=== PATIENT | female | born 1950 | race Caucasian/White ===

== ENCOUNTER 2020-02-26 13:03 | Emergency (ER) | payer MEDICARE, SELFPAY ==
--- NOTE | ~2020-02-26 | CT_ITS ---
EXAMINATION: CTA BRAIN/CAROTID DATE: 02/26/2020 14:23 INDICATION: Left-sided numbness and tingling TECHNIQUE: Computed tomographic angiography (CTA) of the head and neck was performed with 100 mL Omni paque-350 intravenous contrast. Multiplanar reconstructions and maximum intensity projection 3D-recon structions of the carotid arteries and of the intracranial arteries were created by the technologist on a separate workstation. Precontrast CT of the head was also obtained. Automated exposure control and iterative reconstruction technique were employed.The dose-length product was 2706.79 mGy-cm. COMPARISON: None. FINDINGS: Carotid arteries: There is 20% stenosis of the right carotid bulb relative to normal distal artery lumen diameter (NASC ET criteria). There is 25% stenosis of the left carotid bulb relative to normal distal artery lumen d iameter. There is additional 40% stenosis in the more proximal right common carotid artery and 35% st enosis in the more proximal left common carotid artery. Cervical soft tissues are unremarkable. Mild to moderate emphysema. Visualized superior mediastinum is unremarkable. Head: No acute intracranial hemorrhage, acute infarction or abnormal extra axial fluid collection. There is moderate scattered white matter hypoattenuation consistent with chronic small vessel ischemic diseas e. Ventricles are normal and symmetric. No mass/mass effect. The orbits, paranasal sinuses and masto id air cells are normal. No abnormally enhancing brain lesions. Intracranial arteries Atherosclerotic calcifications at the bilateral carotid siphons without hemodynamically significant s tenosis. Left vertebral artery is dominant. There is no hemodynamically significant stenosis in the vertebral, basilar arteries. There are no aneurysms identified. Bilateral A1 segments are patent. The re is a diminutive right P1 segment with the majority of flow to the right posterior cerebral artery appearing to be supplied via the right internal carotid artery and a large right posterior communicat ing artery. The left posterior indicating artery appears to be the exclusive supply to the left poste rior cerebral artery. Cerebral arterial arborization appears symmetric. IMPRESSION: 1. 20% stenosis of the right carotid bulb relative to normal distal artery lumen diameter (NASCET cri teria). 2. 25% stenosis of the left carotid bulb relative to normal distal artery lumen diameter. 3. Moderate scattered white matter hypoattenuation consistent with chronic small vessel ischemic dise ase. No acute intracranial process. 4. No aneurysm or hemodynamically significant stenosis in the intracranial arteries. Reviewed, dictated and finalized at location A. ETIC LOCATER IMPRESSION: 1. 20% stenosis of the right carotid bulb relative to normal distal artery lume n diameter (NASCET criteria). 2. 25% stenosis of the left carotid bulb relative to normal distal artery lumen diameter. 3. Moderate scattered white matter hypoattenuation consistent with chronic smal l vessel ischemic disease. No acute intracranial process. 4. No aneurysm or hemodynamically significant stenosis in the intracranial bonilla jose.
[2020-02-26 13:05] VITALS: BP 156/88; PULSE 96; RESP 18; TEMP 37.1; O2SAT 99
[2020-02-26 13:14] VITALS: PULSE 87; RESP 23; O2SAT 97
[2020-02-26 13:15] VITALS: PULSE 88; RESP 17; O2SAT 98
[2020-02-26 13:30] VITALS: PULSE 82; RESP 19; O2SAT 94
--- NOTE | 2020-02-26 13:30 | ED.NEUROSD ---
HPI - Neuro Symptoms/Deficit General Chief Complaint: Neuro Symptoms/Deficit Stated Complaint: tingling in left arm going down left side of body Time Seen by Provider: 02/26/20 13:17 Source: patient Mode of arrival: ambulatory Limitations: no limitations History of Present Illness HPI Narrative: Patient 70-year-old female complaining of tingling of her left arm and left lower extremity that started around 930 this morning that lasted for a few minutes. Patient states that it happened again after an hour again only for a few minutes and now resolved. Patient currently asymptomatic and has no complaints. Patient denies any speech or visual disturbance, weakness, numbness or unsteady gait. Patient [place] any chest pain, shortness of breath, abdominal pain, nausea vomiting, fever or chills Related Data Home Medications Medication Instructions Recorded Confirmed aspirin 81 mg chewable tablet 81 mg PO DAILY 09/14/19 01/20/20 Allergies Allergy/AdvReac Type Severity Reaction Status Date / Time No Known Allergies Allergy Verified 01/20/20 09:03 Review of Systems Review of Systems: All systems reviewed & are unremarkable except as noted in HPI and below Constitutional: Constitutional: Denies body ache(s), Denies chills, Denies excessive sweating, Denies fatigue, Denies fever(s), Denies headache(s), Denies lethargy, Denies malaise, Denies weakness and Denies weight loss Eyes: Eyes: Denies blurry vision, Denies change in vision and Denies loss of vision ENT: Denies dizziness, Denies ear discharge, Denies headache(s), Denies lip swelling, Denies epistaxis, Denies nasal congestion, Denies neck pain, Denies throat swelling and Denies tongue swelling Cardiovascular: Cardiovascular: Denies chest pain, Denies chest pain at rest, Denies chest pain with activity, Denies diaphoresis, Denies rapid heart rate, Denies edema, Denies irregular heart rhythm, Denies lightheadedness, Denies palpitations, Denies dyspnea and Denies dyspnea on exertion Respiratory: Respiratory: Denies chest congestion, Denies cough, Denies hemoptysis, Denies dyspnea and Denies dyspnea on exertion Gastrointestinal: Gastrointestinal: Denies abdominal pain, Denies melena, Denies hematochezia, Denies diarrhea, Denies nausea, Denies vomiting and Denies hematemesis Musculoskeletal: Musculoskeletal: Denies abnormal gait, Denies deformity, Denies joint swelling, Denies limited range of motion, Denies neck pain and Denies numbness Neurologic: Denies Abnormal speech present, Denies abnormal gait, Denies confusion, Denies dizziness, Denies headache(s), Denies focal weakness, Denies loss of vision, Denies numbness, Denies Other visual disturbances and Denies weakness Psychiatric: Psychiatric: Denies confusion, Denies depression, Denies auditory hallucinations, Denies homicidal ideation and Denies suicidal ideation Endocrine: Endocrine: Denies cold intolerance, Denies excessive sweating, Denies fatigue, Denies heat intolerance and Denies palpitations Hematologic/Lymphatic: Hematologic/Lymphatic: Denies easy bleeding and Denies easy bruising Allergic/Immunologic: Allergic/Immunologic: Denies lip swelling, Denies throat swelling and Denies tongue swelling PMFSH Past Medical History Medical History Aortic stenosis, mild Depression Dyslipidemia Essential (primary) hypertension GERD without esophagitis OAB (overactive bladder) SANDRA (obstructive sleep apnea) Type 2 diabetes mellitus without complication, without long-term current use of insulin Unspecified osteoarthritis, unspecified site Ventral hernia (~07/2014) Surgical History Surgical History History of appendectomy (~1958) History of cholecystectomy (~2007) 12/2007 History of total knee arthroplasty (~08/2011) Left - 08/2011 Right - 04/2006 History of ventral hernia repair 07/2014 Hx of section 1984 a
[2020-02-26 14:03] LABS: Estimated CRCL calculation 69 ml/min; Estimated Glomerular Filt Rate > 60
[2020-02-26 14:33] LABS: Basophils Absolute Auto 0.1 K/mm3 (0.0-0.1); Basophils Percent Auto 1.1 % (0.2-1.2); Eosinophils Absolute Auto 0.1 K/mm3 (0-0.3); Hemoglobin 13.2 g/dL (12.0-15.0); Immature Granulocyte Absolute 0.11 K/mm3 (0.00-0.031); Immature Granulocyte Percent A 1.4 % (0-0.5); Lymphocytes Absolute Auto 1.34 K/mm3 (0.9-3.2); Lymphocytes Percent Auto 16.5 % (18.3-44.2); Mean Corpuscular HGB Conc 33.8 g/dl (32-36); Mean Corpuscular Hemoglobin 30.5 pg (26-34); Mean Corpuscular Volume 90.1 fl (80-100); Mean Platelet Volume 10.1 fl (7.4-10.4); Monocytes Absolute Auto 0.6 K/mm3 (0.1-0.6); Monocytes Percent Auto 6.8 % (2.6-8.5); Neutrophils Percent Auto 73.2 % (45.5-73.1); Platelet Count Result 271 k/mm3 (150-375); Red Blood Count 4.33 M/mm3 (4.2-5.4); Red Cell Distribution Width 12.9 % (11.5-14.5); White Blood Count 8.1 K/mm3 (4.5-10.0)
[2020-02-26 14:41] LABS: INR 0.9; Prothrombin Time 12.9 Seconds (11.1-14.7)
[2020-02-26 14:42] LABS: Partial Thromboplastin Time 26.9 SECONDS (22.3-36.8)
[2020-02-26 14:43] LABS: Anion Gap 3 mmol/L (8-16); Blood Urea Nitrogen 17 mg/dL (7-17); Calcium 8.9 mg/dL (8.4-10.2); Carbon Dioxide 33 mmol/L (22-30); Chloride 99 mmol/L (98-107); Estimated CRCL calculation 69 ml/min; Estimated Glomerular Filt Rate > 60; Glucose 107 mg/dL (65-105); Potassium 3.8 mmol/L (3.4-5.0); Sodium 135 mmol/L (137-145)
[2020-02-26 14:55] LABS: Troponin I < 0.012 ng/mL (0.000-0.034)
--- NOTE | 2020-02-26 15:55 | ECG_ITS ---
Measurements Intervals [place] Rate: 78 P: -16 NM: 146 QRS: 51 QRSD: 94 T: 53 QT: 369 QTc: 421 Interpretive Statements SINUS RHYTHM INCOMPLETE RIGHT BUNDLE BRANCH BLOCK BORDERLINE T WAVE ABNORMALITY- ANTERIOR LEADS BASELINE ARTIFACT- I, III, AVL, V1 BORDERLINE ECG Electronically Signed On 02-26-2020 16:23:50 JUNIOR PHP DEVELOPER by Zana Mahoney D.O.
--- NOTE | 2020-02-26 16:02 | PC.NURSE ---
new order from provider for EKG.
== END 2020-02-26 17:10 | disposition home or self-care (01) ==
PROVIDERS: Emergency Provider Emergency Medicine; PCP Family Medicine
DX: R20.2 Paresthesia of skin (principal); I35.0 Nonrheumatic aortic (valve) stenosis; E78.5 Hyperlipidemia, unspecified; I10 Essential (primary) hypertension; K21.9 Gastro-esophageal reflux disease without esophagitis; N32.81 Overactive bladder; G47.33 Obstructive sleep apnea (adult) (pediatric); E11.9 Type 2 diabetes mellitus without complications; M19.90 Unspecified osteoarthritis, unspecified site; Z96.653 Presence of artificial knee joint, bilateral; F17.210 Nicotine dependence, cigarettes, uncomplicated; I45.10 Unspecified right bundle-branch block; R94.31 Abnormal electrocardiogram [ECG] [EKG]; Z79.82 Long term (current) use of aspirin
CPT/HCPCS: 70496; 70498; 80048; 84484; 85025; 85610; 85730; 93005; 99284; Q9967

== ENCOUNTER 2020-03-15 12:27 | Outpatient (CLI) | payer MEDICARE, SELFPAY ==
--- NOTE | ~2020-03-15 | MM_ITS ---
EXAMINATION: MM screening cici BI w lis HISTORY: Screening mammogram TECHNIQUE: Craniocaudal and mediolateral oblique 3-D tomosynthesis images were obtained and synthetic 2-D images were generated. CAD analysis was submitted and interpreted. COMPARISON: 02/05/2019, 01/28/2018, 06/29/2014 bilateral digital screening mammogram examinations BREAST PARENCHYMAL COMPOSITION: There are scattered areas of fibroglandular density. FINDINGS: There is no evidence of suspicious mass, calcification, or architectural distortion to sugg est malignancy in either breast. There has been no suspicious interval change. IMPRESSION: 1. No mammographic evidence of malignancy. 2. Recommend routine screening mammography in one year. BI-RADS Category 1: Negative Reviewed, dictated and finalized at location A. SFER STATION OPERATOR
== END 2020-03-15 12:28 | disposition home or self-care (01) ==
LOC: ANHIMG 12:29
PROVIDERS: PCP Family Medicine; Visit Provider Family Medicine
DX: Z12.31 Encounter for screening mammogram for malignant neoplasm of breast (principal)
CPT/HCPCS: 77063; 77067

== ENCOUNTER 2023-02-20 14:46 | Outpatient (CLI) | payer OTHER, SELFPAY ==
--- NOTE | ~2023-02-20 | CT_ITS ---
EXAMINATION:CT lung screening DATE: 02/20/2023 14:59 INDICATION: Encounter for screening for malignant neoplasm. Smoker. TECHNIQUE: Computed tomography (CT) of the chest was performed without intravenous contrast. Automate d exposure control and iterative reconstruction technique were employed. The dose-length product (DLP ) was 381.71 mGy-cm. COMPARISON: None. FINDINGS: There is mild scarring at the lung apices. There is a 4 mm nodule in right middle lobe. The re is a 3 mm nodule in left upper lobe. There is moderate emphysema. There is mild atelectasis bilate rally. No pleural effusion. The heart size is normal. There are coronary artery calcifications. No pe ricardial effusion. There is a small sliding hiatal hernia. There are changes of cholecystectomy. Aor tic atherosclerosis is noted. There is severe thoracic and lumbar spondylosis. IMPRESSION: 1. Lung-RADS category 2: Benign appearance or behavior. Continue annual screening with noncontrast lo w-dose chest CT in 12 months. Reviewed, dictated and finalized at location A. WARE IMPLEMENTATION PROJECT MANAGER IMPRESSION: 1. Lung-RADS category 2: Benign appearance or behavior. Continue annual screeni ng with noncontrast low-dose chest CT in 12 months.
== END 2023-02-20 14:47 | disposition home or self-care (01) ==
LOC: ANHIMG 14:48
PROVIDERS: PCP Family Medicine; Visit Provider Family Medicine
DX: Z12.2 Encounter for screening for malignant neoplasm of respiratory organs (principal); Z87.891 Personal history of nicotine dependence
CPT/HCPCS: 71271

== ENCOUNTER 2023-06-21 19:11 | Emergency (ER) | payer OTHER, SELFPAY ==
--- NOTE | ~2023-06-21 | XR_ITS ---
XR hip BI 2V w AP pelvis DATE: 06/22/2023 02:07 INDICATION: Fall. Bilateral hip pain, left greater than right TECHNIQUE: AP pelvis. AP and lateral views of each hip. COMPARISON: None FINDINGS: No pelvic fracture or bone destruction. Normal alignment at the pubic symphysis and sacroil iac joints. Hip joint spaces are relatively well preserved. No fracture or dislocation, avascular nec rosis or bone destruction of either hip. Abdominal aortic, bilateral common and external iliac artery calcifications. IMPRESSION: No pelvic or left or right hip fracture or dislocation is detected Reviewed, dictated and finalized at location A.
--- NOTE | ~2023-06-21 | XR_ITS ---
XR_[id number]_CR DATE: 06/22/2023 02:07 INDICATION: Fall on left chest. Left rib pain. TECHNIQUE: PA chest. 4 views of the left ribs. COMPARISON: None FINDINGS: Borderline heart size. Aortic arch calcification. No hilar or mediastinal enlargement. There is minimal infiltrate or atelectasis at the lung bases. The lungs are moderately hyperinflated but otherwise clear. No pleural effusion or pulmonary vascular congestion or pneumothorax is detected. Thoracic spine. Osteopenia. No displaced recent left rib fracture is evident. IMPRESSION: No apparent left rib fracture Osteopenia Scoliosis and degenerative spurring of the thoracic spine Minimal basilar infiltrate or atelectasis is suggested bilaterally Reviewed, dictated and finalized at Location A. Reviewed, dictated and finalized at location A.
[2023-06-21 19:14] VITALS: BP 110/87; PULSE 86; RESP 16; TEMP 36.7; O2SAT 97
--- NOTE | 2023-06-22 00:52 | ED.FALL ---
HPI - Fall General Chief Complaint: Fall Stated Complaint: Fall from step ladder, fell on left hip, EMS Time Seen by Provider: 06/22/23 00:22 Source: patient Mode of arrival: EMS Limitations: no limitations History of Present Illness HPI Narrative: Patient accidentally fell from a small step ladder at approximately 5:15 pm will trying to hang a shower curtain in the bathroom. No loss of consciousness/syncope. Rather she states that she just lost her balance while reaching. She still and reports pain to bilateral hips (L > R) and left ribs/chest. None anticoagulation. She denies any neck or back pain. She denies any shortness of breath but does state that her ribs hurt when she breathes. Related Data Home Medications Medication Instructions Recorded Confirmed aspirin 81 mg chewable tablet 81 mg PO DAILY 09/14/19 04/16/23 (Delphine Chewable Low Dose Aspirin) cholecalciferol (vitamin D3) 1,250 50,000 unit PO WEEKLY 04/16/23 04/16/23 mcg (50,000 unit) capsule Allergies Allergy/AdvReac Type Severity Reaction Status Date / Time metformin AdvReac Mild Diarrhea Verified 04/16/23 14:27 [facility] Past Medical History Medical History Aortic stenosis Depression Dyslipidemia Essential (primary) hypertension GERD without esophagitis History of colon polyps History of TIA (transient ischemic attack) 02/2020 OAB (overactive bladder) SANDRA (obstructive sleep apnea) Prediabetes Type 2 diabetes mellitus without complication, without long-term current use of insulin Unspecified osteoarthritis, unspecified site Ventral hernia (~07/2014) Vitamin D deficiency Surgical History Surgical History History of appendectomy (~1959) History of cholecystectomy (~2007) 12/2007 History of total knee arthroplasty (~08/2011) Left - 08/2011 Right - 04/2006 History of ventral hernia repair (~07/2014) 07/2014 Hx of section 1984 and 1987 Family History Family History Other Family history of coronary artery disease Social History Social History Smoking packs per day: 0.5 Smoking cigarettes per day: 10.0 Years smoked: 50 Smoking pack-years: 25.00 Smoking status: Current every day smoker Tobacco type: cigarettes Second hand tobacco smoke exposure: Yes Additional smoking assessment comments: Consumes 10 cigarettes daily Alcohol intake: never Substance use: never Substance use type: does not use Lack of Transportation: No Lack of Food: Sometimes True Current Housing: I Have Housing Concerned About Future Housing: No Difficulty Paying Gas/Electric Bills: No Difficulty Paying for Meds: No Currently Unemployed: No Education: High School Diploma/GED Difficulty w/ Childcare or Family Care: No Living arrangements: alone Additional living arrangements comments: Son Occupation/Education: retired Gender identity (if verbalized by the patient): Female Agree to blood products: Yes Exam Narrative: GENERAL: Well-appearing, well-nourished, and in no acute distress. HEAD: Normocephalic, atraumatic. EYES: Non injected, non icteric ENT: Nares clear, no rhinorrhea or epistaxis. NECK: Supple. CHEST: Clear to auscultation bilaterally, not diminished. No respiratory distress. No wheezes or crackles. No subcutaneous emphysema or crepitus. Mild tenderness to palpation of chest. HEART: Regular rate and rhythm. . ABDOMEN: Soft, nondistended. EXTREMITIES: Normal range of motion. No edema. Pelvis stable to compression. No tenderness to palpation of bilateral hips. SKIN: Warm, dry, no rash. NEURO: No focal deficits. Alert and oriented x3. PSYCH: Normal mood and affect. Course Vital Signs Vital signs: Vital Signs Temperature 98.0 F 06/21/23 19:14 P
[2023-06-22] MEDS: HYDROcodone/acetaminophen (*CRX) 5-325 MG TABLET 1 TAB PO (01:49)
[2023-06-22] MEDS: ACETAMINOPHEN 325 MG TABLET 650 MG PO (01:49)
[2023-06-22 04:47] VITALS: BP 121/84; PULSE 86; RESP 18; O2SAT 100
== END 2023-06-22 04:46 | disposition home or self-care (01) ==
PROVIDERS: Emergency Provider Student in an Organized Health Care Education/Training Program; PCP Family Medicine
DX: S22.32XA Fracture of one rib, left side, initial encounter for closed fracture (principal); W11.XXXA Fall on and from ladder, initial encounter; M25.552 Pain in left hip; F17.210 Nicotine dependence, cigarettes, uncomplicated; I35.0 Nonrheumatic aortic (valve) stenosis; E78.5 Hyperlipidemia, unspecified; I10 Essential (primary) hypertension; K21.9 Gastro-esophageal reflux disease without esophagitis; E11.9 Type 2 diabetes mellitus without complications; M19.90 Unspecified osteoarthritis, unspecified site; E55.9 Vitamin D deficiency, unspecified; Z86.73 Personal history of transient ischemic attack (TIA), and cerebral infarction without residual deficits; Z96.653 Presence of artificial knee joint, bilateral; Z79.82 Long term (current) use of aspirin
CPT/HCPCS: 71101; 73521; 99284; A9270

== ENCOUNTER 2024-06-15 10:42 | Outpatient (CLI) | payer OTHER, SELFPAY ==
--- NOTE | ~2024-06-15 | XR_ITS ---
EXAMINATION: XR hand LT min 3V DATE: 06/15/2024 11:04 INDICATION: Ganglion, unspecified hand. TECHNIQUE: 3 views of left hand were obtained. COMPARISON: None. FINDINGS: Alignment is normal. No fracture. There is severe osteoarthritis of triscaphe joint and fir st carpometacarpal joint. There is a loose body at first carpometacarpal joint. There is severe osteo arthritis of first and second metacarpophalangeal joints. There is mild to moderate osteoarthrosis of many of the metacarpophalangeal joints and interphalangeal joints. There is severe osteoarthritis of first interphalangeal joint and second and third distal interphalangeal joints. IMPRESSION: 1. Polyarticular osteoarthritis. Reviewed, dictated and finalized at location A.
--- OUTSIDE RECORDS SUMMARY | 2024-06-15 12:50 | XMS_ITS | Clinical Summary ---
Author Organization [facility] [place] [address] Address [address] [place] [address] Care Team Providers Care Child Care Attendant Name Role Phone Latoya Sorenson MD Primary Care Provider Miscellaneous, Not In File Unavailable Unava ilable Allergies No known active allergies Medications amLODIPine (NORVASC) 10 mg tablet Take 1 tablet (10 mg total) by mouth daily Active atorvastatin (LIPITOR) 20 mg tablet Take 1 tablet (20 mg total) by mouth nightly at bedtime 05/29/2023 Active lisinopril-hydr oCHLOROthiazide (ZESTORETIC) 20-12.5 mg per tablet Take 1 tablet by mouth daily 04/19/2023 Active omeprazole (PriLOSEC) 10 mg capsule Take 1 capsule (10 mg total) by mouth daily Active oxyBUTYnin XL (DITROPAN XL) 15 mg 24 hr tablet Take 1 tablet (15 mg total) by mouth daily 05/14/2023 Active sertraline (ZOLOFT) 100 mg tablet Take 1 tablet (100 mg total) by mouth daily Active acetaminophen (TYLENOL) 325 mg tabletIndicatio ns:Pain Take 2 tablets (650 mg total) by mouth every 6 (six) hours 06/27/2023 Active cyclobenzaprine (FLEXERIL) 10 mg tabletIndicatio ns:Muscle Spasm Take 1 tablet (10 mg total) by mouth 3 (three) times a day as needed for muscle spasms 30 tablet 06/27/2023 Active lidocaine (ASPERCREME) 4 % adhesive patch,medicated Place 2 patches on the skin daily 06/28/2023 Active senna (SENOKOT) 8.6 mg tabletIndicatio ns:constipation Take 1 tablet by mouth 2 (two) times a day 30 tablet 06/27/2023 Active oxyCODONE (ROXICODONE) 5 mg immediate release tabletIndicatio ns:Pain Take 1 tablet (5 mg total) by mouth every 4 (four) hours as needed for pain 20 tablet 06/27/2023 Active Active Problems Problem Noted Date Diagnosed Date Lumbar transverse process fracture 06/27/2023 Assessment & Plan (06/27/2023 8:42 AM CDT): - L1-5 TP fractures - NSGY consult - TLSO when OOB - Upright xray 4/5 Fall (on) (from) other stairs and steps, sequela 06/26/2023 Assessment & Plan (06/26/2023 11:23 AM CDT): - Occurred 4 days prior to presentation - Mechanical fall Compression fracture of T12 vertebra with routin e healing 06/26/2023 Assessment & Plan (06/27/2023 8:43 AM CDT): - NSGY consult - Non op management - TLSO when OOB - MRI complete in ED - Neuro checks q 4 - Pain control, PT/OT Blunt chest trauma, subsequent encounter Assessment & Plan (06/26/2023 11:32 AM CDT): - Pt was seen 4 days prior to admission at OSH - Was diagnosed with 2 L sided rib fractures, refused CT scan at OSH - CT chest at H negative for rib fractures, RULED OUT HTN (hypertension) 06/26/2023 Assessment & Plan (06/26/2023 11:40 AM CDT): - Amlodipine 10 D - Lisinopril/HCTZ 20-12.5 D Held - VS q 8 HLD (hyperlipidemia) 06/26/2023 Assessment & Plan (06/26/2023 11:41 AM CDT): - Atorvastatin 20 D Encounter for medication review 06/26/2023 Assessment & Plan (06/26/2023 11:42 AM CDT): - Home meds obtained from pharmacy records - [facility]- P: [phone] Discharge planning issues 06/26/2023 Assessment & Plan (06/27/2023 8:39 AM CDT): - 06/25: New admission to [facility], Pending final plan from NSGY and PT/OT - 06/26: Pending upright xray and PT/OT Social History Tobacco Use Types Packs/Day Years Used Date Smoking Tobacco: Every Day Cigarettes Smokeless Tobacco: Never Tobacco Cessation:Ready to Q uit: Not Asked; Counseling Given: Not Answered [facility] sciencebite Answer Date Recorded In the past 12 months has e [employer], [employer], or water [employer] threatened to shut off services in your home? No 06/26/2023 Humiliation, Afraid, Rape, and Kick questionnair e Answer Date Recorded Within the last year, have y ou been afraid of your partner or ex-partner? No 06/26/2023 Within the last year, have y ou been humiliated or emotionally abused in other ways by your partner or ex-partner? No Within the last year, have y ou been kicked, hit, slapped, or otherwise physically hurt by your partner or ex-partner? No 06/26/2023 Within the last year, have y ou been raped or forced to have any kind of sexual activity by your partner or ex-partner? No 06/26/2023 Social Connection and Isolat ion Panel [NHANES] Answer Date Recorded In a typical week, how many times do you talk on the phone with family, friends, or neighbors? More than three times a week 06/26/2023 How often do you get togethe r with friends or relatives? More than three times a week 06/26/2023 How often do you attend [facility] or hinduism services? Never 06/26/2023 Do you belong to any clubs o r organizations such as roman catholic groups, unions, fraternal or athletic groups, or school groups? No 06/26/2023 How often do you attend meet ings of the clubs or organizations you belong to? Never 06/26/2023 Are you , , di vorced, , never , or living with a partner? 06/26/2023 AUDIT-C Answer Date Recorded Q1: How often do you have a drink containing alcohol? Never 06/26/2023 Q2: How many drinks containi ng alcohol do you have on a typical day when you are drinking? Patient does not drink Q3: How often do you have si x or more drinks on one occasion? Never 06/26/2023 Overall Financial Resource Strain (CARDIA) Answe r Date Recorded How hard is it for you to pa y for the very basics like food, housing, medical care, and heating? Not very hard 06/26/2023 [facility] - Occupational Stress Questionnaire Answer Date Recorded Do you feel stress - tense, restless, nervous, or anxious, or unable to sleep at night because your mind is troubled all the time - these days? Only a little 06/26/2023 Exercise Vital Sign Answer Date Recorde d On average, how many days pe r week do you engage in moderate to strenuous exercise (like a brisk walk)? 5 days 06/26/2023 On average, how many minutes do you engage in exercise at this level? 60 min 06/26/2023 Hunger Vital Sign Answer Date Recorded Within the past 12 months, y ou worried that your food would run out before you got the money to buy more. Never true 06/26/19 24 Within the past 12 months, t he food you bought just didn't last and you didn't have money to get more. Never true 06/26/2023 PRAPARE - Transportation Answer Date Re corded In the past 12 months, has l ack of transportation kept you from medical appointments or from getting medications? No 06/2023 In the past 12 months, has l ack of transportation kept you from meetings, work, or from getting things needed for daily living? No 06/26/2023 Housing Stability Vital Sign Answer Andrey e Recorded In the last 12 months, was t here a time when you were not able to pay the mortgage or rent on time? No 06/26/2023 In the last 12 months, how many places have you lived? 1 06/26/2023 In the last 12 months, was t here a time when you did not have a steady place to sleep or slept in a nursing home (including now)? No 06/26/2023 Personal Safety Answer Date Recorded Have you ever been in or are you currently in a harmful physical or emotional relationship or is someone making you feel afraid or unsafe? 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[employer] Gender Identity Not on file Sexual Orientation Not on file Obstetrics History Last Filed Vital Signs Vital Sign Reading Time Taken Comments Blood Pressure 108/76 06/27/2023 3:00 PM CDT Pulse 73 06/27/2023 3:00 PM CDT Temperature 36.7 C (98.1 F) 06/27/2023 3:00 PM CDT Respiratory Rate 18 06/27/2023 3:00 PM CDT Oxygen Saturation 94% 06/27/2023 3:00 PM CDT Inhaled Oxygen Concentration - - Weight 83.3 kg (183 lb 9.6 oz) 09/08/2023 2:44 P M CDT Height 163.8 cm (5' 4.5 ) 09/08/2023 2:44 PM CDT Body Mass Index 31.03 09/08/2023 2:44 PM CDT Plan of Treatment Health Maintenance Due Date Last Done Comments Colon Cancer Screening-Colonoscopy 1950 Depression Screening 1950 Hepatitis C Screening 1950 Osteoporosis Screening-Bone Density Scan 1949 Hepatitis B Screening 1967 Well Visit 65+ 2014 Influenza Vaccine (#1) 2023 3, 02/08/2021, 01/21/2020, Additional history exists Fall Risk Assessment 06/26/2024 06/27/2023 DTaP/Tdap/Td Vaccine (2 - Td or Tdap) 07/01/2025 07/02/2015, 02/27/2012 Pneumococcal vaccine 65+ Completed 01/04/2019, 1006/2017 Zoster Vaccine Completed 11/10/2021, 08/27/2021 Insurance [facility] Address: [address] [address] [place] [address] [facility] Advance Directives For more information, please contact: [phone] * Full Code (Latest Code Status on File) Date Activated Date Inactivated Comments 06/26/2023 12:45 PM 06/27/2023 10:27 PM Care Teams Child Care Attendant Relationship Specialty Start Date End Date Latoya Sorenson MD PCP - General Family Practice 08/24/18 Miscellaneous, Not In File 06/27/23
--- OUTSIDE RECORDS SUMMARY | 2024-06-15 12:50 | XMS_ITS | Referral Summary ---
Author Organization [facility] [address] Address [address] [place] [address] Care Team Providers Care Lacing Operator Name Role Phone Latoya Sorenson MD Primary [...] from pharmacy records - [facility]- P: [phone] Discharge planning issues 06/26/2023 Assessment & Plan (06/27/2023 8:39 AM CDT): - 06/25: New admission to [facility], Pending final plan from NSGY and PT/OT - 06/26: Pending upright xray and PT/OT Social History Tobacco Use Types Packs/Day Years Used Date Smoking Tobacco: Every Day Cigarettes Smokeless Tobacco: Never Tobacco Cessation:Ready to Q uit: Not Asked; Counseling Given: Not Answered [facility] HeTexted Answer Date Recorded In the past 12 months has e [employer], [employer], or water [employer] threatened to shut off services in your [...] week 06/26/2023 How often do you attend [facility] or advent services? Never 06/26/2023 Do you belong to [...] place to sleep or slept in a penitentiary (including now)? No 06/26/2023 Personal Safety Answer Date Recorded Have you ever been in or are you currently in a harmful physical or emotional relationship or is someone making you feel afraid or unsafe? 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 Gender Identity Not on file Sexual Orientation Not on file Last Filed Vital Signs Vital Sign Reading [...] 09/08/2023 2:44 PM CDT Plan of Treatment Not on file Insurance [facility] MEDICARE ADVANTAGE [facility] Member Subscriber Plan / Payer (Ef fective 2022-Present) Name:Nidia Choudhary Florencia Relation to Subscriber:Self Name:Nidia Choudhary Payer ID:[id number] (NAIC) Type:MEDICARE RISK OTHER Address: [address] [place] [id number] [facility] Advance Directives For more information, please contact: [phone] * Full Code (Latest Code Status on File) Date Activated Date Inactivated Comments 06/26/2023 12:45 PM 06/27/2023 10:27 PM Care Teams Lacing Operator Relationship Specialty Start Date End Date Latoya Sorenson MD PCP - General Family Practice 08/24/18 Miscellaneous, Not In File 06/27/23
--- OUTSIDE RECORDS SUMMARY | 2024-06-15 12:50 | XMS_ITS | Clinical Summary ---
Author Organization [facility] [place] Address [facility] [place] [address] Care Team Providers Care Digital Content Coordinator Name Role Phone Unavailable Primary Care Provider Unavailabl e Social History Tobacco Use Types Packs/Day Years Used Date Smoking Tobacco: Never Assessed Comments Unknown Sex and Gender Information Value Date Recorded Sex Assigned at Not on file Legal Sex Female 7:50 PM CDT Gender Identity Not on file Sexual Orientation Not on file Plan of Treatment Health Maintenance Due Date Last Done Comments Colorectal Cancer Screening Colonoscopy (10 Years) 1950 Hepatitis C 1967 DTaP, Tdap and Td Vaccines ( 1 - Tdap) 02/21/1968 Mammogram Screening 1989 Zoster Vaccines (1 of 2) 1999 Dexa Scan (General) 2014 Pneumococcal Vaccine: 65+ Ye ars (2 of 2 - PPSV23 or PCV20) 12/25/2018 12/25/2017 COVID-19 Vaccine (2023-2 5 season) 2023 Influenza Adult (#1) 2023 01/21/2017 RSV Immunization or 60+ Years (1 - 1-dose 75+ series) 02/21/2024 Meningococcal B Vaccine Aged Out No l onger eligible based on patient's age to complete this topic Meningococcal Vaccine Aged Out No nhan gisele eligible based on patient's age to complete this topic RSV Immunizations Under 20 Months Aged Out No longer eligible based on patient's age to complete this topic
== END 2024-06-15 10:43 | disposition home or self-care (01) ==
LOC: ANHIMG 10:50
PROVIDERS: PCP Family Medicine; Visit Provider Plastic Surgery
DX: M19.042 Primary osteoarthritis, left hand (principal); M67.449 Ganglion, unspecified hand
CPT/HCPCS: 73130

== ENCOUNTER 2024-06-25 08:51 | Outpatient (CLI) | payer OTHER, SELFPAY ==
--- NOTE | ~2024-06-25 | CT_ITS ---
CT Scan of the Chest without Contrast: Clinical Indication: Lung cancer screening, nicotine dependence Technique: Contiguous sections were acquired throughout the chest without intravenous contrast. Dose reduction technique was used on this scan by utilizing automated exposure control and iterative recon struction technique. The dose-length product (DLP) was 152.17 mGy-cm. COMPARISON: 02/20/2023 Findings: There is no evidence of any significant mediastinal, hilar or axillary lymphadenopathy. There are ext ensive atherosclerotic calcifications of the aorta and coronary arteries. There is no evidence of pleural or pericardial effusion. Stable 4 mm right middle lobe pulmonary nodule. Stable minimal bibasilar scarring. Moderate emphysema present. Images through the upper abdomen reveal no abnormalities. Impression: Lung RADS 2: Benign appearance. 12 month follow-up screening CT advised. Reviewed, dictated and finalized at [facility]. Impression: Lung RADS 2: Benign appearance. 12 month follow-up screening CT advised.
--- OUTSIDE RECORDS SUMMARY | 2024-06-25 08:59 | XMS_ITS | Clinical Summary ---
Author Organization [facility] [place] [address] Address [address] [place] [address] Care Team Providers Care Civilian Jail Officer Name Role Phone Latoya Sorenson MD Primary [...] from pharmacy records - [facility]- P: [phone] Discharge planning issues 06/26/2023 Assessment & Plan (06/27/2023 8:39 AM CDT): - 06/25: New admission to [facility], Pending final plan from NSGY and PT/OT - 06/26: Pending upright xray and PT/OT Social History Tobacco Use Types Packs/Day Years Used Date Smoking Tobacco: Every Day Cigarettes Smokeless Tobacco: Never Tobacco Cessation:Ready to Q uit: Not Asked; Counseling Given: Not Answered [facility] [employer] Answer Date Recorded In the past 12 months has e [employer], [employer], or water [employer] threatened to shut off services in your [...] week 06/26/2023 How often do you attend [facility] or adventist services? Never 06/26/2023 Do you belong to any clubs o r organizations such as rastafari groups, unions, fraternal or athletic groups, or [...] care, and heating? Not very hard 06/26/2023 [facility] - Occupational Stress [...] place to sleep or slept in a assisted (including now)? No 06/26/2023 Personal Safety Answer Date Recorded Have you ever been in or are you currently in a harmful physical or emotional relationship or is someone making you feel afraid or unsafe? 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
--- OUTSIDE RECORDS SUMMARY | 2024-06-25 08:59 | XMS_ITS | Clinical Summary ---
Author Organization [facility] Address [facility] [place] [address] Care Team Providers Care Control Clerk Auditing Name Role Phone Unavailable Primary Care Provider [...] Td Vaccines ( 1 - Tdap) 02/21/1968 Zoster Vaccines (1 of 2) 1999 Dexa Scan (General) 2014 Pneumococcal Vaccine: 65+ Ye ars (2 of 2 - PPSV23 or PCV20) 12/25/2018 12/25/2017 COVID-19 Vaccine ( - 2023-2 5 season) 2023 RSV Immunization or 60+ Years (1 - [...]
--- OUTSIDE RECORDS SUMMARY | 2024-06-25 08:59 | XMS_ITS | Referral Summary ---
Author Organization [facility] [address] Address [address] [place] [address] Care Team Providers Care Machine Shop Worker Name Role Phone Latoya Sorenson MD Primary [...] from pharmacy records - [facility] Hadley- P: [phone] Discharge planning issues 06/26/2023 Assessment & Plan (06/27/2023 8:39 AM CDT): - 06/25: New admission to [facility], Pending final plan from NSGY and PT/OT - 06/26: Pending upright xray and PT/OT Social History Tobacco Use Types Packs/Day Years Used Date Smoking Tobacco: Every Day Cigarettes Smokeless Tobacco: Never Tobacco Cessation:Ready to Q uit: Not Asked; Counseling Given: Not Answered [facility] [employer] Answer Date Recorded In the past 12 months has e [employer], [employer], or water [employer] threatened to shut off services in your [...] week 06/26/2023 How often do you attend [facility] or holiness services? Never 06/26/2023 Do you belong to any clubs o r organizations such as anglican groups, unions, fraternal or athletic groups, or [...] care, and heating? Not very hard 06/26/2023 [facility] - Occupational Stress [...] place to sleep or slept in a care home (including now)? No 06/26/2023 Personal Safety Answer Date Recorded Have you ever been in or are you currently in a harmful physical or emotional relationship or is someone making you feel afraid or unsafe? 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 Member Subscriber Plan / Payer (Ef fective 2022-Present) Name:Nidia Choudhary Florencia Relation to Subscriber:Self Name:Nidia Choudhary Payer ID:[id number] (NAIC) Type:MEDICARE RISK OTHER Address: [address] [place] [id number] [facility] Advance Directives For more information, please contact: [phone] * Full Code (Latest Code Status on File) Date Activated Date Inactivated Comments 06/26/2023 12:45 PM 06/27/2023 10:27 PM Care Teams Machine Shop Worker Relationship Specialty Start Date End Date Latoya Sorenson MD PCP - General Family Practice 08/24/18 Miscellaneous, Not In File 06/27/23
== END 2024-06-25 08:52 | disposition home or self-care (01) ==
PROVIDERS: PCP Family Medicine; Visit Provider Family Medicine
DX: Z12.2 Encounter for screening for malignant neoplasm of respiratory organs (principal); Z87.891 Personal history of nicotine dependence
CPT/HCPCS: 71271

== ENCOUNTER 2024-07-08 09:02 | Outpatient (CLI) | payer OTHER, SELFPAY ==
--- NOTE | ~2024-07-08 | NM_ITS ---
EXAMINATION: NM tomeka stress w perfusion DATE: 07/08/2024 11:18 INDICATION: Dyspnea TECHNIQUE: Rest images were obtained following intravenous administration of 9.9 mCi Tc99m tetrofosmi n (Myoview). The patient was infused intravenously with Lexiscan (Regadenoson). Then, 31.1 mCi Tc99m tetrofosmin (Myoview) was administered intravenously, and stress images were obtained. Data was recon structed into short axis and horizontal and vertical long axis SPECT images. Gated SPECT images were also obtained. COMPARISON: None. FINDINGS: There is no definite reversible or fixed perfusion abnormality to suggest ischemia or infar ction. There is normal left ventricular chamber size, wall motion and ejection fraction. Left ventr icular ejection fraction measures >70%. IMPRESSION: 1. Normal myocardial perfusion at rest and during stress. 2. Left ventricular ejection fraction measuring >70%. Reviewed, dictated and finalized at location A.
--- NOTE | 2024-07-08 09:18 | EST_ITS ---
Patient Info Name: Nidia Choudhary Age: 74 years : 1950 Gender: Female Ht: 64 in Wt: 180 lbs BSA: 1.95 m2 Exam Date: 07/08/2024 10:30 AM Exam Location: Echo Lab Patient Status: Outpatient Admit Date: 07/08/2024 Staff Ordering Physician: Niurka Sorenson MD Attending Provider: Niurka Sorenson MD Exercise Technologist: Becky Rai RDCS Exercise Physician: Zana Mahoney DO Exam Type: CA stress tomeka w NM Study Info Indications R06.09 - Other forms of dyspnea A regadenoson stress test was performed. Summary 1. 1. Negative lexiscan stress test for ischemic ST changes by ECG criteria. 2. 2. Stable hemodynamics throughout the test. 3. 3. Nuclear scan to follow and will be reported separately. Please correlate with it. 4. 4. Patient informed of the above results. Protocol: Lexiscan Stress ECG Details Stage: REST Duration (min): 1 min : 22 sec HR (bpm): 64 SBP (mmHg): 116 DBP (mmHg): 64 Stage: REST Duration (min): 11 min : 15 sec HR (bpm): 67 SBP (mmHg): 116 DBP (mmHg): 64 Stage: STAGE 1 Duration (min): 1 min : 0 sec HR (bpm): 78 SBP (mmHg): 113 DBP (mmHg): 62 Stage: RECOVERY Duration (min): 1 min : 0 sec HR (bpm): 94 SBP (mmHg): 111 DBP (mmHg): 61 Stage: RECOVERY Duration (min): 2 min : 0 sec HR (bpm): 90 SBP (mmHg): 111 DBP (mmHg): 61 Stage: RECOVERY Duration (min): 3 min : 0 sec HR (bpm): 88 SBP (mmHg): 114 DBP (mmHg): 63 Stage: RECOVERY Duration (min): 3 min : 6 sec HR (bpm): 90 SBP (mmHg): 114 DBP (mmHg): 63 Rest HR: 67 bpm Peak HR: 94 bpm Rest Sys BP: 116 mmHg Peak Sys BP: 114 mmHg Max Pred HR: 145 bpm % Max Pred HR: 65 % Target HR: 123 bpm Max RPP: 10,716 bpm*mmHg Termination Reason: Completed protocol Cardiac Symptoms: Shortness of breath Total Time: 1 min : 0 sec Rest Luna BP: 64 mmHg Peak Luna BP: 63 mmHg Total Dose: 0.4 mg Resting ECG Sinus rhythm. Stress ECG No ST changes. Arrhythmias None. Report Signatures
--- OUTSIDE RECORDS SUMMARY | 2024-07-08 09:27 | XMS_ITS | Referral Summary ---
Author Organization [facility] [address] Address [address] [place] [address] Care Team Providers Care Welder Apprentice Combination Name Role Phone Latoya Sorenson MD Primary [...] - TLSO when OOB - Upright xray 4/ Fall (on) (from) other stairs and steps, [...] from pharmacy records - [facility] Hadley- P: [phone] Discharge planning issues 06/26/2023 Assessment & Plan (06/27/2023 8:39 AM CDT): - 06/25: New admission to [facility]TS, Pending final plan from NSGY and PT/OT - 06/26: Pending upright xray and PT/OT Social History Tobacco Use Types Packs/Day Years Used Date Smoking Tobacco: Every Day Cigarettes Smokeless Tobacco: Never Tobacco Cessation:Ready to Q uit: Not Asked; Counseling Given: Not Answered [facility] Reverse Mortgage Lenders Direct Answer Date Recorded In the past 12 months has e [employer], [employer], or water [employer] threatened to shut off services in your [...] week 06/26/2023 How often do you attend [facility] or congregation services? Never 06/26/2023 Do you belong to any clubs o r organizations such as spiritism groups, unions, fraternal or athletic groups, or [...] care, and heating? Not very hard 06/26/2023 [facility] - Occupational [...] place to sleep or slept in a [place] health care facility (including now)? No 06/26/2023 Personal Safety Answer Date Recorded Have you ever been in or are you currently in a harmful physical or emotional relationship or is someone making you feel afraid or unsafe? 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 Female 2:59 AM SCHOOL CLERK Gender Identity Not on file Sexual Orientation [...] Plan of Treatment Not on file Insurance [facility] MEDICARE ADVANTAGE [facility] Advance Directives For more information, please contact: [phone] * Full Code (Latest Code Status on File) Date Activated Date Inactivated Comments 06/26/2023 12:45 PM 06/27/2023 10:27 PM Care Teams Welder Apprentice Combination Relationship Specialty Start Date End Date Latoya Sorenson MD PCP - General Family Practice 08/24/18 Miscellaneous, Not In File 06/27/23
--- OUTSIDE RECORDS SUMMARY | 2024-07-08 09:27 | XMS_ITS | Clinical Summary ---
Author Organization [facility] Address [facility] [place] [address] Care Team Providers Care Material Flow Analyst Name Role Phone Unavailable Primary Care Provider [...] 1999 Dexa Scan (General) 2014 Pneumococcal Vaccine: 50+ Ye ars (2 of 2 - PPSV23 [...]
--- OUTSIDE RECORDS SUMMARY | 2024-07-08 09:27 | XMS_ITS | Clinical Summary ---
Author Organization [facility] [address] Address [address] [place] [address] Care Team Providers Care Mineral Surveyor Name Role Phone Latoya Sorenson MD Primary [...] from pharmacy records - [facility] Hadley- P: [phone] Discharge planning issues 06/26/2023 Assessment & Plan (06/27/2023 8:39 AM CDT): - 06/25: New admission to [facility], Pending final plan from NSGY and PT/OT - 06/26: Pending upright xray and PT/OT Social History Tobacco Use Types Packs/Day Years Used Date Smoking Tobacco: Every Day Cigarettes Smokeless Tobacco: Never Tobacco Cessation:Ready to Q uit: Not Asked; Counseling Given: Not Answered [facility] [employer] Answer Date Recorded In the past 12 months has e [employer], [employer], or water [employer] threatened to shut off services in your [...] week 06/26/2023 [facility] often do you attend [facility] or anabaptism services? Never 06/26/2023 Do you belong to any clubs o r organizations such as catholic groups, unions, fraternal or athletic groups, [...] care, and heating? Not very hard 06/26/2023 [facility] - Occupational [...] place to sleep or slept in a half-way (including now)? No 06/26/2023 Personal Safety Answer Date Recorded Have you ever been in or are you currently in a harmful physical or emotional relationship or is someone making you feel afraid or unsafe? 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 * Full Code (Latest Code Status on File) Date Activated Date Inactivated Comments 06/26/2023 12:45 PM 06/27/2023 10:27 PM Care Teams Mineral Surveyor Relationship Specialty Start Date End Date Latoya Sorenson MD PCP - General Family Practice 08/24/18 Miscellaneous, Not In File 06/27/23
--- NOTE | 2024-07-08 11:20 | ECHO_ITS ---
Patient Info Name: Nidia Choudhary Age: 74 years : 1950 Gender: Female Ht: 64 in Wt: 180 lbs BSA: 1.95 m2 HR: 81 bpm BP: 127 / 68 mmHg Technical Quality: Good Exam Date: 07/08/2024 12:31 PM Exam Location: Echo Lab Patient Status: Outpatient Admit Date: 07/08/2024 Staff Ordering Physician: Niurka Sorenson MD Family Resource Management Professor: Cherie Clemens RDCS Attending Provider: Niurka Sorenson MD Exam Type: CA echo doppler color flow Study Info Complete two-dimensional, color flow and Doppler transthoracic echocardiogram is performed. Summary 1. Complete two-dimensional, color flow and Doppler transthoracic echocardiogram is performed. 2. Left ventricular chamber dimension is normal. 3. Left ventricular systolic function is hyperdynamic, estimated at >70%. 4. The left ventricular diastolic function is grade I diastolic dysfunction. 5. E/e' 22 is elevated. 6. Left atrial chamber dimension is mildly enlarged. 7. There is severe aortic valve sclerosis. 8. There is moderate to severe aortic valve stenosis with a peak velocity of 356 cm/s, mean gradient of 24 mmHg, and aortic valve area of 1.0 cm2. 9. There is mild to moderate aortic valve regurgitation. 10. The mitral valve has moderately calcified annulus. 11. There is mild mitral valve stenosis with mean gradient 5 mmHg. 12. There is trace tricuspid valve regurgitation. 13. No pulmonary hypertension, estimated pulmonary arterial systolic pressure is 29 mmHg. Left Ventricle E/e' 22 is elevated. Left ventricular chamber dimension is normal. Left ventricular systolic function is hyperdynamic, estimated at >70%. The left ventricular diastolic function is grade I diastolic dysfunction. Right Ventricle Right ventricular chamber dimension is normal. Right ventricular systolic function is normal. Left Atria Left atrial chamber dimension is mildly enlarged. Right Atria Right atrial chamber dimension is normal. Aortic Valve The aortic valve is trileaflet. There is severe aortic valve sclerosis. There is moderate to severe aortic valve stenosis with a peak velocity of 356 cm/s, mean gradient of 24 mmHg, and aortic valve area of 1.0 cm2. There is mild to moderate aortic valve regurgitation. Pulmonic Valve There is no pulmonic regurgitation. Mitral Valve The mitral valve has moderately calcified annulus. There is mild mitral valve stenosis with mean gradient 5 mmHg. There is no mitral valve regurgitation. Tricuspid Valve There is trace tricuspid valve regurgitation. No pulmonary hypertension, estimated pulmonary arterial systolic pressure is 29 mmHg. Pericardium/Pleural There is no pericardial effusion. Inferior Vena Cava Normal inferior vena cava with >50% collapse upon inspiration consistent with normal right atrial pressure, 5 mmHg. Aorta The aortic root size at the sinus of Valsalva is normal. Left Ventricular Outflow Tract Name Value Normal LVOT 2D LVOT Diameter 1.8 cm LVOT Doppler LVOT Peak Gradient 6 mmHg LVOT Mean Gradient 4 mmHg LVOT VTI 30 cm LVOT VTI/AV VTI Ratio 0.4 LVOT Stroke Volume 75 ml LVOT CO 14.2 l/min LVOT CI 7.3 l/min/m2 Pulmonic Valve Name Value Normal PV Doppler PV Peak Gradient 4 mmHg Mitral Valve Name Value Normal MV Doppler MV Peak Gradient 13 mmHg MV Mean Gradient 5 mmHg MV Decel Maui 332 cm/s2 MV PHT 88 ms MV Area (PHT) 2.5 cm2 4.0-5.0 MV Area (Cont Eq VTI) 1.7 cm2 MV Diastolic Function MV E Peak Velocity 101 cm/s MV A Peak Velocity 165 cm/s MV E/A 0.6 MV Decel Time 305 ms MV Annular TDI MV E/e' (Septal) 19.8 <=8.0 MV E/e' (Lateral) 25.0 <=8.0 MV E/e' (Average) 22.4 Tricuspid Valve Name Value Normal TV Regurgitation Doppler TR Peak Velocity 245 cm/s TR Peak Gradient 24 mmHg Estimated PAP/RSVP RA Pressure 5 mmHg <=5 PA Systolic Pressure 29 mmHg <36 RV Systolic Pressure 29 mmHg <36 Aorta Name Value Normal Ascending Aorta Ao Root Diameter (MM) 2.7 cm Ao Root Diam Index (MM) 1.4 cm/m2 Aortic Valve Name Value Normal AV Doppler AV Peak Velocity 356 cm/s AV Peak Gradient 51 mmHg AV Mean Gradient 24 mmHg AV VTI 73 cm AV Area (Cont Eq VTI) 1.0 cm2 >=3.0 AV Area (Cont Eq Hal) 0.8 cm2 AV Regurgitation 2D LVOT Area 2.5 cm2 AV Regurgitation Doppler AR Decel Time 1,773 ms AR Decel Maui 192 cm/s2 AR PHT 514 ms Ventricles Name Value Normal LV Dimensions 2D/MM IVS Diastolic Thickness (2D) 1.1 cm 0.6-1.0 LVID Diastole (2D) 3.9 cm 3.8-5.2 LVIW Diastolic Thickness (2D) 1.1 cm 0.6-0.9 LVID Systole (2D) 2.2 cm 2.2-3.5 LVOT Diameter 1.8 cm LV Mass (2D Cubed) 145.80 g 67.00-162.00 LV Mass Index (2D Cubed) 75 g/m2 43-95 Relative Wall Thickness (2D) 0.55 LV Fractional Shortening/Ejection Fraction 2D/MM LV Fractional Shortening (2D) 43 % 27-45 LV EF (2D Teicholz) 75 % 54-74 LV Diastolic Volume (4C MOD) 72 ml LV EF (4C MOD) 66 % LV Diastolic Volume (2C MOD) 83 ml LV EF (2C MOD) 69 % LV Diastolic Volume (BP MOD) 78 ml 46-106 LV Diastolic Volume Index (BP MOD) 40 ml/m2 29-61 LV Systolic Volume (BP MOD) 25 ml 14-42 LV Systolic Volume Index (BP MOD) 13 ml/m2 8-24 LV EF (BP MOD) 67 % 54-74 LV Diastolic Length (4C) 7.2 cm LV Systolic Length (4C) 5.9 cm LV Stroke Volume (4C MOD) 47 ml RV Dimensions 2D/MM RVID Diastole (2D) 3.1 cm 2.5-3.5 Atria Name Value Normal LA Dimensions LA Dimension (MM) 4.0 cm 2.7-3.8 LA Volume (4C A-L) 73 ml LA Volume (BP A-L) 72 ml RA Dimensions RA Area (4C) 13.1 cm2 <=18.0 Report Signatures
--- NOTE | 2024-07-08 16:32 | WPDPFTINT ---
PFT Procedure Performed PFT Procedure Performed Spirometry with Pre/Post Bronchodilator Plethysmography (Lung Vol) Diffusing Cap (DLCO) Flow Vol Loop PFT Interpretation This is a pulmonary function test with pre and post-bronchodilator spirometry, plethysmography and diffusing capacity. The test was performed and results interpreted in accordance with the 2019 and 2005 ATS/ERS Task Force guidelines respectively using the Global Lung Function Initiative-2012 reference equations. Patient demonstrated good effort and cooperation. Reproducibility criteria were met. The quality of the pre bronchodilator spirometry maneuver was Grade A and post bronchodilator spirometry maneuver was Grade A. Findings: Spirometry: There is decreased maximal expiratory airflow at all lung volumes with concave expiratory flow tracing. The contour of the inspiratory flow tracing is normal. The pre bronchodilator FVC is 2.16 L, 80% predicted. The pre bronchodilator FEV1 is 1.35 L, 65% predicted. The pre bronchodilator FEV1: FVC ratio 63%. The post bronchodilator FVC is 2.41 L, representing an 11% increase. The post bronchodilator FEV1 is 1.41 L, representing a 4% increase. The post bronchodilator FEV1: FVC ratio is 59%. Plethysmography: The total lung capacity is 6.31 L, 124% predicted. The functional residual capacity is 5.69 L, 195% predicted. The residual volume is 4.15 L, 181% predicted. The residual volume: Total lung capacity ratio 66%. Diffusing capacity: The diffusing capacity unadjusted for hemoglobin and carboxyhemoglobin is 9.3, 46% predicted. The diffusing capacity adjusted for alveolar volume is 2.57, 61% predicted. Impression: There is a moderate obstructive abnormality. There is no significant improvement after inhaling a single dose of albuterol. The increase in residual volume to total lung volume ratio is consistent with hyperinflation from an obstructive abnormality. The diffusing capacity unadjusted for hemoglobin and carboxyhemoglobin is moderately decreased and remains mildly decreased when adjusted for alveolar volume. There are no prior studies for comparison
== END 2024-07-08 09:03 | disposition home or self-care (01) ==
PROVIDERS: PCP Family Medicine; Visit Provider Family Medicine
DX: R94.2 Abnormal results of pulmonary function studies (principal); I50.30 Unspecified diastolic (congestive) heart failure; I35.0 Nonrheumatic aortic (valve) stenosis; I25.10 Atherosclerotic heart disease of native coronary artery without angina pectoris
CPT/HCPCS: 78452; 93017; 93306; 94060; 94726; 94729; A9502; J2785

== ENCOUNTER 2024-11-11 14:05 | Outpatient (CLI) | payer OTHER, SELFPAY ==
--- OUTSIDE RECORDS SUMMARY | 2024-11-11 14:19 | XMS_ITS | Clinical Summary ---
Author Organization [facility] Address [facility] [place] [address] Care Team Providers Care Assistant County Attorney Name Role Phone Unavailable Primary Care Provider [...] 50+ Ye ars (2 of 2 - PPSV23) 12/25/2018 12/25/2017 COVID-19 Vaccine ( - 2023-2 [...]
--- OUTSIDE RECORDS SUMMARY | 2024-11-11 14:19 | XMS_ITS | Clinical Summary ---
Author Organization [facility] [place] [address] Address [address] [place] [address] Care Team Providers Care Tie Sawyer Name Role Phone Latoya Sorenson MD Primary [...] from pharmacy records - [facility]- P: [phone] Discharge planning issues 06/26/2023 Assessment & Plan (06/27/2023 8:39 AM CDT): - 06/25: New admission to [facility], Pending final plan from [facility] and PT/OT - 06/26: Pending upright xray and PT/OT Social History Tobacco Use Types Packs/Day Years Used Date Smoking Tobacco: Every Day Cigarettes Smokeless Tobacco: Never Tobacco Cessation:Ready to Q uit: Not Asked; Counseling Given: Not Answered [facility] Answer Date Recorded In the past 12 months has [employer], [facility], or water [employer] threatened to shut off services in your [...] or ex-partner? No 06/26/2023 Social Connection and Isolation Panel Answer Date Recorded In a typical week, how many times do you talk on the phone with family, friends, or neighbors? More than three times a week 06/26/2023 How often do you get togethe r with friends or relatives? More than three times a week 06/26/2023 How often do you attend [facility] or buddhism services? Never 06/26/2023 Do you belong to any clubs o r organizations such as denominational groups, unions, fraternal or athletic groups, or [...] care, and heating? Not very hard 06/26/2023 [facility] Occupational Stress Questionnaire Answer Date Recorded [...] on file Legal Sex Female 2:59 AM [employer] Gender Identity Not on file Sexual Orientation [...] P M CDT Height 163.8 cm (5' 4.5) 09/08/2023 2:44 PM CDT Body Mass Index 31.03 09/08/2023 2:44 PM CDT Plan of Treatment Health Maintenance Due Date Last Done Comments Colon Cancer Screening-Colonoscopy 1950 Depression Screening 1950 Hepatitis C Screening 1950 Osteoporosis Screening-Bone Density Scan 1950 Hepatitis B Screening 1967 Well Visit 65+ 2014 Fall Risk Assessment 06/26/2024 06/27/2023 Influenza Vaccine (#1) 2024 , 02/08/2021, 01/21/2020, Additional history exists DTaP/Tdap/Td Vaccine (2 - Td or Tdap) 07/01/2025 07/02/2015, 02/27/2012 Pneumococcal vaccine 65+ Completed 01/04/2019, 06/2017 Zoster Vaccine Completed 11/10/2021, 08/27/2021 Insurance [facility] ADV[facility] Advance Directives For more information, please contact: [phone] * Full Code (Latest Code Status on File) Date Activated Date Inactivated Comments 06/26/2023 12:45 PM 06/27/2023 10:27 PM Care Teams Tie Sawyer Relationship Specialty Start Date End Date Latoya Sorenson MD PCP - General Family Practice 08/24/18 Miscellaneous, Not In File 06/27/23
[2024-11-11 15:04] LABS: Anion Gap 7 mmol/L (4-12); Blood Urea Nitrogen 11 mg/dL (7-17); Calcium 10.0 mg/dL (8.4-10.2); Carbon Dioxide 31 mmol/L (22-30); Chloride 98 mmol/L (98-107); Estimated Glomerular Filt Rate > 60; Glucose 121 mg/dL (65-110); Potassium 3.9 mmol/L (3.4-5.0); Sodium 136 mmol/L (137-145)
== END 2024-11-11 14:06 | disposition home or self-care (01) ==
PROVIDERS: Anesthesiology; PCP Family Medicine; Visit Provider Plastic Surgery
DX: I10 Essential (primary) hypertension (principal)
CPT/HCPCS: 36415; 80048

== ENCOUNTER 2025-01-10 11:53 | Outpatient (CLI) | payer OTHER, SELFPAY ==
--- NOTE | ~2025-01-10 | DEXA_ITS ---
Bone Density Report Name: TANYA PEDRO Age: 74 Sex: Female Ethnicity: White Date of : 1950 Indication: postmenopausal; screening for osteoporosis; height loss; Referring Provider: AGNES ROSS Study: Bone densitometry was performed. Exam Date: January 10, 2025 Accession number: [id number] Bone Density: Region BMD T-score Z-score Classification AP Spine(L1-L4) 1.258 1.9 4.4 Normal Femoral Neck (Left) 0.625 -2.0 0.1 Osteopenia Total Hip (Left) 0.876 -0.5 1.3 Normal Femoral Neck (Right) 0.610 -2.1 0.0 Osteopenia Total Hip (Right) 0.886 -0.5 1.4 Normal Total Hip Mean 0.881 -0.5 1.4 Normal World Health Organization criteria for BMD impression classify patients as: Normal (T-score at or above -1.0), Osteopenia (T-score between -1.0 and -2.5), or Osteoporosis (T-score at or below -2.5). 10-year Fracture Risk(1): Major Osteoporotic Fracture 15% Hip Fracture 5.9% Reported Risk Factors: [place] (), Neck BMD=0.610, BMI=32.4, smoking (1) FRAX(R) Version 3.08. Fracture probability calculated for an untreated patient. Fracture probability may be lower if the patient has received treatment. Previous Exams: Region Exam Age BMD T-score BMD Change BMD Change Date g/cm2 vs Baseline vs Previous AP Spine (L1-L4) 01/10/2025 74 1.258 1.9 0.048 (3.9%)* 0.048 (3.9%)* 02/05/2019 68 1.211 1.5 Total Hip(Left) 01/10/2025 74 0.876 -0.5 -0.030 (-3.3%) -0.030 (-3.3%) 02/05/2019 68 0.906 -0.3 Total Hip(Right) 01/10/2025 74 0.886 -0.5 -0.051 (-5.5%) -0.051 (-5.5%) 02/05/2019 68 0.937 0.0 *Denotes significance at 95% confidence level, LSC for AP Spine = 0.022 g/cm2, LSC for Total Hip = 0.027 g/cm2 Clinical Information Provided by Patient: Smokes Has used the following medications: Vitamin D, Calcium Patient maximum height was 65.0 Menopause Age: 47 Does not regularly consume dairy products Drinks caffeinated beverages Onset of menses at age 12 Number of children 2 Impression: The patient has low bone mass, based on the Right Femoral Neck T-score. The patient has an estimated ten-year risk of hip fracture of 5.9% and an estimated ten-year risk of major fracture of 15%, based on the WHO FRAX algorithm. The patient has risk factors, including: smoking. The BMD for the Total Hip(Left) decreased, changing by -3.3% since the last DXA exam. The BMD for the Total Hip(Right) decreased, changing by -5.5% since the last DXA exam. Discussion: BONE DENSITY IS LOW AT ONE OR MORE SKELETAL SITES. THE PATIENT'S BMD AND CLINICAL RISK FACTORS CONTRIBUTE TO THIS PATIENT'S INCREASED RISK OF FRACTURE. This patient's lowest T-score is low at one or more skeletal sites. It meets the World Health Organization's (WHO) criteria for ?low bone mass? (T-score between -1.0 and -2.5). The patient's 10-year risk of hip fracture as calculated by FRAX exceeds the threshold where pharmacological therapy is recommended by the National Osteoporosis Foundation (NOF). However, all treatment decisions require clinical judgment and consideration of individual patient factors, including patient preferences, comorbidities, previous drug use, risk factors not captured in the FRAX model (e.g., frailty, falls, vitamin D deficiency, increased bone turnover, interval significant decline in bone density) and possible under or overestimation of fracture risk by FRAX. The patient should follow a healthful lifestyle (good nutrition with adequate calcium and vitamin D, and appropriate weight-bearing exercise). Follow-Up: Consider a repeat BMD and Vertebral Fracture Assessment (VFA) exam in 2 years or sooner if medically necessary, to reassess this patient's status. Reported by: PRIMITIVO on 01/10/2025 12:40:00 PM. Reviewed, dictated and finalized at location A.
== END 2025-01-10 11:54 | disposition home or self-care (01) ==
LOC: ANHFOHIMG 11:55
PROVIDERS: PCP Family Medicine; Visit Provider Family Medicine
DX: M85.89 Other specified disorders of bone density and structure, multiple sites (principal); Z78.0 Asymptomatic menopausal state; Z13.820 Encounter for screening for osteoporosis
CPT/HCPCS: 77080